=== PATIENT | female | born 1990 | race Caucasian/White ===

== ENCOUNTER 2021-06-08 06:10 | Emergency (ER) | payer OTHER ==
[~2021-06-08] VITALS: Ht 162.6 cm; Wt 63.5 kg
[2021-06-08 07:04] LABS: Influenza A, PCR NEGATIVE (NEGATIVE); Influenza B, PCR NEGATIVE (NEGATIVE); Resp Syncytial Virus, PCR NEGATIVE (NEGATIVE); SARS-Cov-2 (COVID-19) PCR, MMC NEGATIVE (NEGATIVE)
[2021-06-08] MEDS ORDERED: Almacone Liqui355 ML PO (09:01)
[2021-06-08] MEDS ORDERED: ONDA4 PO (09:01)
== END 2021-06-08 09:42 | disposition home or self-care (01) ==
LOC: ER 06:10
PROVIDERS: Student in an Organized Health Care Education/Training Program
DX: K52.9 Noninfective gastroenteritis and colitis, unspecified (principal); Z20.822 Contact with and (suspected) exposure to COVID-19; F17.210 Nicotine dependence, cigarettes, uncomplicated
CPT/HCPCS: 0241U; 81025; 96361; 96374; 99284-25; A9270; J0780; J7030